=== PATIENT | male | born 1940 | race Caucasian/White ===

== ENCOUNTER 2023-11-26 10:33 | Inpatient (IN) | payer MEDICARE, OTHER, SELFPAY ==
--- NOTE | ~2023-11-26 | CT_ITS ---
EXAMINATION: CT HEAD WITHOUT CONTRAST CT CERVICAL SPINE WITHOUT CONTRAST CLINICAL INFORMATION: 83-year-old male with syncopal episode COMPARISON: None TECHNIQUE: CT of the head and cervical spine were performed without intravenous contrast. Multiplanar reformats were rendered and reviewed. This CT examination was performed using dose optimization techniques as appropriate, variously including the following: *Automated exposure control *Adjustment of mA and/or kV according to patient size (this includes techniques or standardized protocols for targeted exams where dose is matched to indication/reason for exam; i.e. extremities or head) *Use of iterative reconstruction technique DLP: 1162 mGy-cm. FINDINGS: CT head: No intracranial hemorrhage, large infarction, or mass lesion is seen . No extra-axial collection is appreciated. Ventricles and sulci are mildly prominent due to involutional changes in the mild patchy periventricular white matter changes as a sequela of microangiopathy. Visualized paranasal sinuses demonstrate mucosal thickening and mucus retention cyst in the left maxillary sinus. The right frontal sinus is not developed. The left frontal sinus is well aerated, ethmoidal and sphenoidal sinuses are well aerated. Mastoids are well aerated toe ulcer. CT cervical spine: The cervical alignment is normal. The craniocervical junction is normal. The vertebral body heights are maintained. No cervical spine fracture is seen. There are mild degenerative changes in cervical spine without spondylolysis or spondylolisthesis but with narrowing of C5-C6 intervertebral disc space with vacuum phenomenon. The paraspinal soft tissues are within normal limits. The partially imaged lung apices demonstrate left-sided pleural effusion CT/CT cervical spine wo IV con IMPRESSION: CT HEAD: 1. No acute intracranial finding. 2. Sequela of microangiopathy and global volume loss 3. Chronic sinus disease. CT CERVICAL SPINE: 1. No cervical spine fracture or traumatic malalignment identified. 2. Degenerative changes in cervical spine. 3. Left-sided pleural effusion.
--- NOTE | ~2023-11-26 | XR_ITS ---
EXAMINATION: XR CHEST CLINICAL INFORMATION: Pleural effusion with bilateral leg swelling COMPARISON: None available. TECHNIQUE: Frontal view of the chest was obtained. FINDINGS: The heart is enlarged. A left chest wall dual-lead pacemaker is present with one lead at the right ventricular apex and the other lead possibly at the right ventricular apex as well. The typical course of a coronary sinus lead is not seen. There is pulmonary vascular congestion. There is airspace opacity in the right midlung and at the left base with obscuration of the hemidiaphragm. Small pleural effusions are most likely present. XR/XR chest 1V IMPRESSION: 1. Cardiomegaly with pulmonary vascular congestion and small pleural effusions. 2. Airspace opacity right midlung and left base. 3. Pacemaker leads as described above.
--- NOTE | 2023-11-26 11:16 | ED_ITS ---
HPI - Fall General Chief Complaint: Fall Stated Complaint: FELL @0400, ams Time Seen by Provider: 11/26/23 11:09 Source: patient, EMS and RN notes reviewed Mode of arrival: EMS Limitations: no limitations History of Present Illness HPI Narrative: This is a 83-year-old male, with a past medical history of chronic kidney disease stage 3, CHF on supplemental O2, acute on chronic respiratory failure, atrial fibrillation, hypertension, pulmonary edema, malignant neoplasm of the colon, and sleep apnea, who presents to the emergency department from [facility], after a unwitnessed fall. Per EMS, they report stated that patient had fallen this morning at approximately 4:00 a.m. and had appear to be confused, and lethargic. However per EMS, patient became alert and oriented x4 and route. He reported to staff members that he had head and neck pain after this fall, however upon arrival to the emergency room he states he is feeling well and states that the fall occurred yesterday and he states that he just returned back from a hospital in [place]. Patient is a poor historian, states that he fell out of bed yesterday. He denies any headache does vision, chest pain, shortness of breath, abdominal pain, nausea, vomiting or diarrhea. No other complaints or concerns. MD complaint: fall Onset (ago): day(s) Fall from: out of bed Fall witnessed: no Place fall occurred: retirement/SNF Loss of consciousness: unsure Prolonged down time: unclear Associated symptoms (after fall): denies Related Data Allergies Allergy/AdvReac Type Severity Reaction Status Date / Time No Known Allergies Allergy Verified 11/26/23 11:26 Review of Systems 2 Review of Systems: Yes all other systems are reviewed and are negative Constitutional: Constitutional: Reports as per [facility] Social History Social History Smoked in Last 30 Days: No Use of substances other than those prescribed or required for medical reasons: No Advance Directives: No Physical Exam 2 Vital Signs: Vital Signs: Last Vital Signs Temp 97.5 F 11/26/23 13:50 Pulse 76 11/26/23 13:50 Resp 16 11/26/23 13:50 BP 132/76 11/26/23 13:50 Pulse Ox 98 11/26/23 13:50 O2 Del Method Nasal Cannula 11/26/23 13:50 O2 Flow Rate 3 11/26/23 13:50 Oxygen Flow Rate 4 11/26/23 11:18 BMI result Body Mass Index 28.2 Const: General: cooperative, comfortable and no acute distress O rientation/consciousness: patient oriented x3 Limitations: no limitations HEENT: Head: Yes normal to inspection, Yes normocephalic, Yes atraumatic, No Marte's sign, No occipital foramen tenderness, No palpable skull fracture and No raccoon eyes Ears: hearing grossly normal bilaterally and TM's normal bilaterally General nose exam: Normal external nose present Face and sinus: Yes normal facial exam Mouth: Normal oral and palatal mucosa present, oropharynx normal and moist mucous membranes Throat: Yes posterior oropharynx normal Eyes: General: appearance normal, both eyes and all related structures E yelids: Yes eyelids normal Conjunctivae: conjunctivae normal Sclerae: s clerae normal Pupils: Equal, round and reactive pupils present EOM: EOMs intact bilaterally Neck: Other: No midline spine tenderness palpation. Neck: Yes normal visual inspection, Yes full ROM and Yes no lymphadenopathy Lymphatic: no lymphadenopathy noted Chest: Chest palpation & inspection: normal inspection of the chest Resp: Other: Crackles auscultated in BL lung bases. Effort & Inspection: normal respiratory effort and able to speak in complete sentences Cardio: Rate: regular rate Rhythm: regular rhythm Heart sounds: S1 normal heart sound present and S2 normal heart sound present GI: Inspection: Yes normal to inspection Skin: General skin exam: no rashes or lesions noted Trauma: no lacerations or abrasions Wounds: no wounds Neuro: General: patient oriented x3 and moves all extremities Cranial nerves: Yes Equal, round and reactive pupils present Extrem: Other: 2+ pitting edema noted bilaterally. No calf tenderness. General: Yes normal to inspection Right upper extremity: normal to inspection Left upper extremity: normal to inspection Right lower extremity: normal to inspection Left lower extremity: normal to inspection Course Reevaluation(s) Reevaluation #1: Troponin returns, elevated at 98.9. Will repeat at 3:23PM. Patient remains comfortable. He has not had any chest pain or shortness of breath. EKG shows a ventricular paced rhythm, no obvious ST elevation or depression. Time: 13:55 Reevaluation #2: Repeat troponin flat at 98.8. Elevated troponin likely due to CKD. CT head unremarkable for any acute process. CT cervical spine shows no acute fracture. BNP elevated at 772. Albumin 3.0. We have no labs for comparison. Patient has faint crackles as well as 3+ pitting edema noted bilaterally. Physical exam findings consistent with acute CHF. Patient likely benefit from hospital admission. Chest x-ray was ordered, still pending however appears to have pleural effusion noted. Spoke to Dr. Lea for transfer of care for CHF. Time: 16:17 Medical Decision Making Medical Decision Making [facility] Narrative: This is a 83-year-old male, with a past medical history of chronic kidney disease stage 3, CHF, acute on chronic respiratory failure, atrial fibrillation, hypertension, pulmonary edema, malignant neoplasm of the colon, and sleep apnea, who presents to the emergency department from [facility], after an unwitnessed fall. On arrival, patient is alert and oriented x4. He is neurologically intact without any focal deficits. Patient recalls the fall which occurred according to him yesterday at 4:00 a.m. in the morning after he fell out of bed. He states that he was previously seen at a hospital in [place] for this. He states that he is unsure why he is here today. He is feeling well. Patient appears to be a poor historian in regards to situation however he is still alert and oriented. Patient on supplemental oxygen. Vital signs within normal limits. Differential diagnoses include ACS, ICH, subdural hematoma, syncope, electrolyte derangement, orthostatic hypotension. Plan labs, CT head, CT cervical spine, EKG Differential Diagnosis Differential Diagnoses: The differential diagnosis associated with the presentation includes See above Admission/Observation Consideration of admission/observation: Escalation of care including admission/observation considered Escalation of care including admission/observation considered however given workup today not warranted at this time. Lab Data [facility] Lab Attestation statement: I reviewed the patient's lab results. Normocytic anemia noted with a hemoglobin and hematocrit at 11.6/41.9, electrolytes within normal limits. Creatinine shows no evidence of CHITO. Elevated troponin 98.8, low albumin at 3.0. 11/26/23 12:23 11/26/23 12:23 Labs: Lab Results 11/26/23 11/26/23 11/26/23 Range/Units 12:23 14:04 15:38 WBC 4.5 L (4.8-10.8) X10*3/uL RBC 4.47 L (4.60-5.80) X10*6/uL Hgb 11.6 L (14.0-18.0) g/dl Hct 41.9 L (42.0-52.0) % MCV 93.7 (80.0-98.0) fL MCH 26.0 L (27.0-33.0) pg MCHC 27.7 L (31.0-36.0) g/dl RDW 18.3 H (11.0-16.0) % Plt Count 115 L (160-400) X10*3/uL MPV 10.0 (9.4-12.4) fL Immature Gran % (Auto) 0.7 H (0.0-0.4) % Neut % (Auto) 75.8 H (45-73) % Lymph % (Auto) 12.0 L (20-40) % Quay % (Auto) 10.0 (2-11) % Eos % (Auto) 1.1 (0-4) % Baso % (Auto) 0.4 (0-2) % Lymph # (Auto) 0.5 L (1.2-4.9) X10*3/uL Quay # (Auto) 0.5 (0.1-1.2) X10*3/uL Eos # (Auto) 0.1 (0.0-0.4) X10*3/uL Baso # (Auto) 0.0 (0.0-0.2) X10*3/uL Abs Immat Gran (auto) 0.03 (0.00-0.03) X10*3/uL Absolute Neuts (auto) 3.4 (2.0-8.3) x10*3/uL Absolute Nucleated RBC 0.000 (0.0-0.012) X10*3/uL Nucleated RBC % (auto) 0.0 (0.0-0.2) /100WBC PT 12.4 (11.1-13.3) SEC INR 1.0 (0.9-1.1) APTT 35.3 (26.0-36.8) SEC Sodium 146 H (135-145) mmol/L Potassium 4.9 D (3.3-5.1) mmol/L Chloride 104 (96-108) mmol/L Carbon Dioxide 35 H (22-29) mmol/L Anion Gap 12 (12-20) BUN 18 H (9-16) mg/dL Creatinine 0.84 (0.5-1.4) mg/dL Estim Creat Clear Calc 81.7 Estimated GFR > 60 Random Glucose 83 (60-115) mg/dL Calcium 9.1 (8.4-10.2) mg/dL Magnesium 1.9 (1.6-2.6) mg/dL Total Bilirubin 0.7 (0.0-1.0) mg/dL Direct Bilirubin 0.2 (0.0-0.5) mg/dL AST 20 (5-37) U/L ALT 11 (0-40) U/L Alkaline Phosphatase 87 (39-117) U/L Total Creatine Kinase 39 (38-174) U/L Troponin I High Sens 98.9 H 99.1 H (<3.5-35.0) ng/L B-Natriuretic Peptide 772 H (<100) pg/mL Total Protein 6.4 L (6.5-8.0) g/dL Albumin 3.0 L (3.5-5.0) g/dL Lipase 11 (8-78) U/L Independent Interpretation I performed an independent interpretation of an: EKG Interpretation: EKG ventricular paced rhythm at a ventricular rate of 72 beats per minute, QTC 470, no obvious ST elevation or depression. Radiology Impression Discussion of test interpretation with radiology: I have reviewed the radiologist's reading. External Record Review External record reviewed: Inpatient record, Office record, Outpatient record, Prior outpatient labs, Prior outpatient radiology, Primary care record and Outside ED record Critical Care Time Critical Care Time Critical Care Time: Yes Total Critical Care Time: 45 Attestation: I have personally provided critical care time exclusive of time spent on separately billable procedures. Time includes review of lab data, radiology results, discussion with consultants, and monitoring for potential decompensation. Intervention performed as documented. Discharge Plan Discharge Clinical Impression: CHF (congestive heart failure), Elevated troponin, Fall Patient Disposition: Admitted As Inpatient Print Language: Serbian
[2023-11-26 11:18] VITALS: BP 131/81; BP 132/76; PULSE 70; RESP 25; TEMP 36.5; O2SAT 98; O2SAT 99; BMI 28.2
--- NOTE | 2023-11-26 11:30 | ECG_ITS ---
Test Reason : FALL, ?SYNCOPE Blood Pressure : / mmHG Vent. Rate : 072 BPM Atrial Rate : 071 BPM P-R Int : 000 ms QRS Dur : 154 ms QT Int : 430 ms P-R-T Axes : 000 168 -05 degrees QTc Int : 470 ms Ventricular-paced rhythm Biventricular pacemaker detected Abnormal ECG No previous ECGs available Referred By: Chanelle Samson Electronically Signed By:Rickie Beckwith
--- NOTE | 2023-11-26 11:46 | MHC.EDTECH ---
Pt changed into hospital gown and cleaned with help of RN. Repositioned with pillows, call saavedra within reach.
[2023-11-26 12:28] LABS: MANUAL DIFF FLAG NO
[2023-11-26 12:41] LABS: Basophils Percent Auto 0.4 % (0-2); Eosinophils Absolute Auto 0.1 X10*3/uL (0.0-0.4); Eosinophils Percent Auto 1.1 % (0-4); Hematocrit 41.9 % (42.0-52.0); Hemoglobin 11.6 g/dl (14.0-18.0); Imm Gran Abs Auto 0.03 X10*3/uL (0.00-0.03); Imm Gran Pct Auto 0.7 % (0.0-0.4); Lymphocytes Absolute Auto 0.5 X10*3/uL (1.2-4.9); Mean Corpuscular HGB Conc 27.7 g/dl (31.0-36.0); Mean Corpuscular Volume 93.7 fL (80.0-98.0); Monocytes Absolute Auto 0.5 X10*3/uL (0.1-1.2); Neutrophils Absolute Auto 3.4 x10*3/uL (2.0-8.3); Neutrophils Percent Auto 75.8 % (45-73); Platelet Count 115 X10*3/uL (160-400); Red Blood Count 4.47 X10*6/uL (4.60-5.80); Red Cell Distribution Width 18.3 % (11.0-16.0); White Blood Count 4.5 X10*3/uL (4.8-10.8)
[2023-11-26 12:56] LABS: Troponin-I High Sensitivity 98.9 ng/L (<3.5-35.0)
[2023-11-26 12:57] LABS: Alanine Aminotransferase 11 U/L (0-40); Alkaline Phosphatase 87 U/L (39-117); Anion Gap 12 (12-20); Aspartate Amino Transferase 20 U/L (5-37); Bilirubin Direct 0.2 mg/dL (0.0-0.5); Bilirubin Total 0.7 mg/dL (0.0-1.0); Blood Urea Nitrogen 18 mg/dL (9-16); Calcium 9.1 mg/dL (8.4-10.2); Carbon Dioxide 35 mmol/L (22-29); Chloride 104 mmol/L (96-108); Creatinine Clr Calc Pharmacy 81.7; Estimated Glomerular Filt Rate > 60; Glucose Random 83 mg/dL (60-115); Lipase 11 U/L (8-78); Magnesium 1.9 mg/dL (1.6-2.6); Potassium 4.9 mmol/L (3.3-5.1); Sodium 146 mmol/L (135-145); Total Protein 6.4 g/dL (6.5-8.0)
--- NOTE | 2023-11-26 13:00 | PC.NURSE ---
PT HAS LARGE AREA OF ABRASION TO UPPER BACK AND EXCORATED BUTTOCKS.
[2023-11-26 13:35] VITALS: BP 112/52; PULSE 84; RESP 16; TEMP 36.4
[2023-11-26 13:50] VITALS: BP 132/76; PULSE 76; RESP 16; TEMP 36.4; O2SAT 98
--- NOTE | 2023-11-26 14:15 | MHC.EDTECH ---
with help of t/w and another tech, Pt cleaned, boosted and repositioned to be more on left side.
[2023-11-26 14:16] LABS: Prothrombin Time 12.4 SEC (11.1-13.3)
[2023-11-26 14:19] LABS: Partial Thromboplastin Time 35.3 SEC (26.0-36.8)
[2023-11-26 14:31] LABS: B Type Natriuretic Peptide 772 pg/mL (<100)
[2023-11-26 16:05] LABS: Troponin-I High Sensitivity 99.1 ng/L (<3.5-35.0)
--- NOTE | 2023-11-26 17:24 | PM.IMHP ---
History of Present Illness Date of Service: 11/26/23 Chief Complaint: fall 83M PMH congestive heart failure with recovered EF, AICD, unspecified afib s/p watchman procedure, AMY not on CPAP, chronic respiratory acidosis, right heart failure and moderate pulm htn, HTN, paraphimosis, presented from snf with fall and le edema. [place] [facility] [place] after prolonged hospitalization due to acute hypoxic on and acute on chronic hypercapneic respiratory failure requiring intubation. patient discharged to [facility]. ambulating with walker, improving overall. on day of presentation reports slipping out of bed while trying to get up, denies loc or head strike. does report increased swelling over past week. denies sob or chest pain. Review of Systems Review of Systems: Yes all other systems are reviewed and are negative [facility] Medical History (Updated 11/26/23 @ 17:32 by John Lea MD) CHF (congestive heart failure) Social History Smoked in Last 30 Days: No Use of substances other than those prescribed or required for medical reasons: No Advance Directives: No Meds Allergies Allergy/AdvReac Type Severity Reaction Status Date / Time No Known Allergies Allergy Verified 11/26/23 11:26 Active Medications: Current Medications Acetaminophen (Acetaminophen 325 Mg Tablet) 650 mg PO Q6H PRN PRN Reason: Pain, Mild (Pain Scale 1-3) Enoxaparin Sodium (Enoxaparin Sodium 40 Mg/0.4 Ml Syringe) 40 mg SUBCUT Q24H HERBIE Furosemide (Furosemide 40 Mg/4 Ml Vial) 40 mg IVPUSH BID@0900,1800 HERBIE; Protocol Sodium Chloride (0.9 % Sodium Chloride Flush 3 Ml Syringe) 3 ml IVFLUSH QSHIFT HERBIE Home Medications ?Medication ?Instructions ?Recorded ?Confirmed ?Last Taken ?Type albuterol sulfate 90 mcg/actuation 1 inh inhalation QID PRN wheezing 11/26/23 11/26/23 Unknown History aerosol inhaler (Ventolin HFA) and sob albuterol sulfate 90 mcg/actuation 1 puff inhalation Q12H 11/26/23 11/26/23 Unknown History aerosol inhaler (Ventolin HFA) aspirin 81 mg tablet,delayed 81 mg PO DAILY 11/26/23 11/26/23 Unknown History release atorvastatin 40 mg tablet 40 mg PO DAILY 11/26/23 11/26/23 Unknown History bisacodyl 10 mg rectal suppository 10 mg KS DAILY PRN if no bowel 11/26/23 11/26/23 Unknown History (Dulcolax (bisacodyl)) movement after milk of magnesia furosemide 40 mg tablet 40 mg PO DAILY 11/26/23 11/26/23 Unknown History magnesium hydroxide 400 mg/5 mL 30 ml PO DAILY PRN Constipation 11/26/23 11/26/23 Unknown History oral suspension (Milk of Magnesia) melatonin 3 mg tablet 3 mg PO BEDTIME PRN Insomnia 11/26/23 11/26/23 Unknown History metoprolol tartrate 25 mg tablet 25 mg PO BID 11/26/23 11/26/23 Unknown History pantoprazole 40 mg tablet,delayed 40 mg PO DAILY 11/26/23 11/26/23 Unknown History release polyethylene glycol 3350 17 17 g PO DAILY 11/26/23 11/26/23 Unknown History gram/dose oral powder potassium chloride 10 mEq 10 meq PO DAILY 11/26/23 11/26/23 Unknown History capsule,extended release potassium, sodium phosphates 280 2 packet PO Q8H 11/26/23 11/26/23 Unknown History mg-160 mg-250 mg oral powder packet (Phos-NaK) quetiapine 25 mg tablet (Seroquel) 25 mg PO BID PRN Agitation 11/26/23 11/26/23 Unknown History Physical Exam Vital Signs and Narrative: Vital Signs: Last Vital Signs Temp 97.5 F 11/26/23 13:50 Pulse 76 11/26/23 13:50 Resp 16 11/26/23 13:50 BP 132/76 11/26/23 13:50 Pulse Ox 98 11/26/23 13:50 O2 Del Method Nasal Cannula 11/26/23 13:50 O2 Flow Rate 3 11/26/23 13:50 Oxygen Flow Rate 4 11/26/23 11:18 BMI result Body Mass Index 28.2 General: AO X 3, no acute distress Resp: CTA bilateral, no accessory muscles used CVS: S1,S2,RRR, 2+ edema GI: soft, non tender, non distended Neuro: motor grossly intact, alert Psych: appropriate affect, appropriate insight Results Labs 11/26/23 12:23 11/26/23 12:23 Labs: Laboratory Results - last 24 hr 11/26/23 11/26/2311/25/24 12:23 14:04 15:38 MCV 93.7 MCH 26.0 L MCHC 27.7 L RDW 18.3 H Plt Count 115 L MPV 10.0 Immature Gran % (Auto) 0.7 H Neut % (Auto) 75.8 H Lymph % (Auto) 12.0 L Dougherty % (Auto) 10.0 Eos % (Auto) 1.1 Baso % (Auto) 0.4 Lymph # (Auto) 0.5 L Dougherty # (Auto) 0.5 Eos # (Auto) 0.1 Baso # (Auto) 0.0 Abs Immat Gran (auto) 0.03 Absolute Neuts (auto) 3.4 Absolute Nucleated RBC 0.000 Nucleated RBC % (auto) 0.0 PT 12.4 INR 1.0 APTT 35.3 Anion Gap 12 Estim Creat Clear Calc 81.7 Estimated GFR > 60 Random Glucose 83 Calcium 9.1 Magnesium 1.9 Total Bilirubin 0.7 Direct Bilirubin 0.2 AST 20 ALT 11 Alkaline Phosphatase 87 Total Creatine Kinase 39 Troponin I High Sens 98.9 H 99.1 H B-Natriuretic Peptide 772 H Total Protein 6.4 L Albumin 3.0 L Lipase 11 Imaging Radiologist's Impressions: Impressions Cervical Spine CT 11/26/23 12:16 IMPRESSION: CT HEAD: 1. No acute intracranial finding. 2. Sequela of microangiopathy and global volume loss 3. Chronic sinus disease. CT CERVICAL SPINE: 1. No cervical spine fracture or traumatic malalignment identified. 2. Degenerative changes in cervical spine. 3. Left-sided pleural effusion. Head CT 11/26/23 12:16 IMPRESSION: CT HEAD: 1. No acute intracranial finding. 2. Sequela of microangiopathy and global volume loss 3. Chronic sinus disease. CT CERVICAL SPINE: 1. No cervical spine fracture or traumatic malalignment identified. 2. Degenerative changes in cervical spine. 3. Left-sided pleural effusion. Assessment and Plan (1) CHF (congestive heart failure): Status: Acute Plan 83M PMH congestive heart failure with recovered EF, AICD, chronic hypoxic and hypercapneic respiratory failure on 2-4L o2, unspecified afib s/p watchman procedure, AMY not on CPAP, chronic respiratory acidosis, right heart failure and moderate pulm htn, HTN, paraphimosis, presented from snf with fall and le edema mechanical fall denies LOC or head strike possible due to increased edema, plan to return to SNF on discharge acute on chronic chf with recovered EF, pulm htn, right heart failure iv laisx, monitor electrolytes, creatinine chronic hypoxic and hypercapneic respiratory failure due to chf, pulm htn currently on 2L o2, goal sat 89-93% unspecified afib recent watchmans, continue asa, metoprolol amy not on cpap may need inpatient study dvt prophylaxis - lovenox DNR/DNI, okay with NIPPV patient with singificant heart failure requiring iv diuresis, close monitoring, given recent intubation, advanced comorbidites mentioned above, high risk for further decompensation, therefore, expected to require atleast 2 midnights inpatient Quality Stroke Does the patient have a stroke diagnosis?: No VTE Prior VTE?: No VTE Risk Level:: Medical - moderate - high VTE Device Contraindication: Treatment Not Indicated VTE Drug Contraindication: N/A - Med Ordered
[2023-11-26 17:29] VITALS: BP 145/73; PULSE 95; RESP 24; TEMP 36.4; O2SAT 97
[2023-11-26] MEDS: Furosemide 40 MG/4 ML VIAL IVPUSH (17:34)
--- NOTE | 2023-11-26 18:16 | PHA.MEDREC ---
Pharmacy Consult ? Medication Reconciliation Pharmacy has completed the medication reconciliation. Patient had list from [facility]. List does show patient takes ventolin HFA 1 puff Q12H scheduled + 1 puff every 6 hours as needed.
[2023-11-26 20:33] VITALS: BP 145/66; PULSE 77; RESP 26; O2SAT 93
[2023-11-26] MEDS: Metoprolol Tartrate 25 MG TABLET PO (20:48)
[2023-11-26 22:00] VITALS: BP 133/63; PULSE 70; RESP 17; TEMP 36.6; O2SAT 98
[2023-11-27 02:12] VITALS: BP 151/73; PULSE 80; RESP 18; TEMP 36.4; O2SAT 94
[2023-11-27 04:00] VITALS: BP 157/66; PULSE 78; RESP 20; TEMP 37.1; O2SAT 94
[2023-11-27 07:18] VITALS: BP 143/68; PULSE 80; RESP 18; TEMP 36.4; O2SAT 96
[2023-11-27 07:24] LABS: Anion Gap 9 (12-20); Blood Urea Nitrogen 20 mg/dL (9-16); Calcium 9.5 mg/dL (8.4-10.2); Chloride 102 mmol/L (96-108); Creatinine Clr Calc Pharmacy 78.8; Estimated Glomerular Filt Rate > 60; Glucose Fasting 96 mg/dL (60-99); Hematocrit 42.3 % (42.0-52.0); Hemoglobin 11.6 g/dl (14.0-18.0); Mean Corpuscular HGB Conc 27.4 g/dl (31.0-36.0); Mean Corpuscular Hemoglobin 25.7 pg (27.0-33.0); Mean Corpuscular Volume 93.8 fL (80.0-98.0); Mean Platelet Volume 10.2 fL (9.4-12.4); Platelet Count 133 X10*3/uL (160-400); Potassium 4.2 mmol/L (3.3-5.1); Red Blood Count 4.51 X10*6/uL (4.60-5.80); Red Cell Distribution Width 17.9 % (11.0-16.0); Sodium 148 mmol/L (135-145); White Blood Count 5.1 X10*3/uL (4.8-10.8)
[2023-11-27 07:33] LABS: Carbon Dioxide 41 mmol/L (22-29)
[2023-11-27 08:04] LABS: Venous Blood Gas Refer to POC result
[2023-11-27 08:05] LABS: VBG Base Excess 14.3 mmol/L; VBG HCO3 43 mmol/L (22-26); VBG pCO2 81 mmHg; VBG pH 7.34 (7.32-7.43); VBG pO2 50 mmHg
[2023-11-27] MEDS: Enoxaparin Sodium 40 MG/0.4 ML SYRINGE SUBCUT (08:17)
[2023-11-27] MEDS: Atorvastatin Calcium 40 MG TABLET PO (08:17)
[2023-11-27] MEDS: Metoprolol Tartrate 25 MG TABLET PO ×2 (08:17→20:33)
[2023-11-27] MEDS: Aspirin Enteric Coated 81 MG TABLET.DR PO (08:17)
[2023-11-27] MEDS: 0.9 % Sodium Chloride Flush 3 ML SYRINGE IVFLUSH ×3 (08:18→21:36)
--- NOTE | 2023-11-27 10:22 | MHC.CM.PN ---
CM met with Patient and his Son at bedside and addressed IMM with them (original was given to Patient and a copy has been placed on the chart). Patient's goal is to return to [facility] to complete STR(Family is deciding on bed hold status). Patient typically lives in a house with his /HCP/Karime and he uses a walker to assist with mobility.
--- NOTE | 2023-11-27 10:27 | MHC.CM.PN ---
BONI returned a call to /Karime @ [phone], but was only able to leave a detailed message.
--- NOTE | 2023-11-27 11:02 | HO.PM.IMPN ---
Subjective Subjective Date of Service: 11/27/23 Interval History: a bit more sob today Physical Exam Vital Signs: Vital Signs: Last Vital Signs Temp 97.5 F 11/27/23 07:18 Pulse 80 11/27/23 07:18 Resp 18 11/27/23 07:18 BP 143/68 H 11/27/23 07:18 Pulse Ox 96 11/27/23 07:18 O2 Del Method Nasal Cannula 11/27/23 07:18 O2 Flow Rate 3 11/27/23 07:18 Oxygen Flow Rate 4 11/26/23 11:18 BMI result Body Mass Index 28.2 General: AO X 3, no acute distress, frail, ill appearing Resp: diminished bilateral, some accessory muscles used CVS: S1,S2,RRR, no edema GI: soft, non tender, non distended Neuro: motor grossly intact, alert Psych: appropriate affect, appropriate insight Objective Data Active Medications Acetaminophen (Acetaminophen 325 Mg Tablet) 650 mg PO Q6H PRN PRN Reason: Pain, Mild (Pain Scale 1-3) Acetazolamide (Acetazolamide Sodium 500 Mg Vial) 500 mg IVPUSH Q12H [facility] Albuterol Sulfate (Albuterol Sulfate 90 Mcg 8 Gm Inhaler) 1 puff INHALE QID PRN PRN Reason: wheezing and sob Aspirin (Aspirin Enteric Coated 81 Mg Tablet.) 81 mg PO DAILY [facility] Last Admin: 11/27/23 08:17 Dose: 81 mg Documented By: JAREK Atorvastatin Calcium (Atorvastatin Calcium 40 Mg Tablet) 40 mg PO DAILY [facility] Last Admin: 11/27/23 08:17 Dose: 40 mg Documented By: JAREK Enoxaparin Sodium (Enoxaparin Sodium 40 Mg/0.4 Ml Syringe) 40 mg SUBCUT Q24H [facility] Last Admin: 11/27/23 08:17 Dose: 40 mg Documented By: JAREK Metoprolol Tartrate (Metoprolol Tartrate 25 Mg Tablet) 25 mg PO BID [facility]; Protocol Last Admin: 11/27/23 08:17 Dose: 25 mg Documented By: JAREK Omeprazole (Omeprazole 20 Mg Capsule.) 20 mg PO DAILY@0630 [facility] Last Admin: 11/27/23 06:14 Dose: Not Given Documented By: ANTOIC Non-Admin Reason: Patient Refused Quetiapine Fumarate (Quetiapine Fumarate 25 Mg Tablet) 25 mg PO BID PRN PRN Reason: Agitation Sodium Chloride (0.9 % Sodium Chloride Flush 3 Ml Syringe) 3 ml IVFLUSH QSHIFT [facility] Last Admin: 11/27/23 08:18 Dose: 3 ml Documented By: JAREK Labs 11/27/23 06:53 11/27/23 06:53 Labs: Laboratory Results - last 24 hr 11/26/23 11/26/23 11/26/23 12:23 14:04 15:38 MCV 93.7 MCH 26.0 L MCHC 27.7 L RDW 18.3 H Plt Count 115 L MPV 10.0 Immature Gran % (Auto) 0.7 H Neut % (Auto) 75.8 H Lymph % (Auto) 12.0 L [place] % (Auto) 10.0 Eos % (Auto) 1.1 Baso % (Auto) 0.4 Lymph # (Auto) 0.5 L [place] # (Auto) 0.5 Eos # (Auto) 0.1 Baso # (Auto) 0.0 Abs Immat Gran (auto) 0.03 Absolute Neuts (auto) 3.4 Absolute Nucleated RBC 0.000 Nucleated RBC % (auto) 0.0 PT 12.4 INR 1.0 APTT 35.3 VBG pH VBG pCO2 VBG pO2 VBG HCO3 VBG O2 Saturation VBG Base Excess Anion Gap 12 Estim Creat Clear Calc 81.7 Estimated GFR > 60 Random Glucose 83 Fasting Glucose Calcium 9.1 Magnesium 1.9 Total Bilirubin 0.7 Direct Bilirubin 0.2 AST 20 ALT 11 Alkaline Phosphatase 87 Total Creatine Kinase 39 Troponin I High Sens 98.9 H 99.1 H B-Natriuretic Peptide 772 H Total Protein 6.4 L Albumin 3.0 L Lipase 11 11/27/23 11/27/23 06:53 07:59 MCV 93.8 MCH 25.7 L MCHC 27.4 L RDW 17.9 H Plt Count 133 L MPV 10.2 Immature Gran % (Auto) Neut % (Auto) Lymph % (Auto) [place] % (Auto) Eos % (Auto) Baso % (Auto) Lymph # (Auto) [place] # (Auto) Eos # (Auto) Baso # (Auto) Abs Immat Gran (auto) Absolute Neuts (auto) Absolute Nucleated RBC 0.000 Nucleated RBC % (auto) 0.0 PT INR APTT VBG pH 7.34 VBG pCO2 81 VBG pO2 50 VBG HCO3 43 H VBG O2 Saturation 76.0 VBG Base Excess 14.3 Anion Gap 9 L Estim Creat Clear Calc 78.8 Estimated GFR > 60 Random Glucose Fasting Glucose 96 Calcium 9.5 Magnesium Total Bilirubin Direct Bilirubin AST ALT Alkaline Phosphatase Total Creatine Kinase Troponin I High Sens B-Natriuretic Peptide Total Protein Albumin Lipase Assessment and Plan (1) CHF (congestive heart failure): Status: Acute Plan 83M PMH congestive heart failure with recovered EF, AICD, chronic hypoxic and hypercapneic respiratory failure on 2-4L o2, unspecified afib s/p watchman procedure, DELONTE not on CPAP, chronic respiratory acidosis, right heart failure and moderate pulm htn, HTN, paraphimosis, presented from snf with fall and le edema mechanical fall denies LOC or head strike possible due to increased edema, plan to return to SNF on discharge acute on chronic chf with recovered EF, pulm htn, right heart failure changed to iv diamox, monitor electrolytes, creatinine acute on chronic hypoxic and hypercapneic respiratory failure due to chf, pulm htn currently on 2L o2, goal sat 89-93% vbg with some mild acute on chronic respiratory acidosis, needs cpap when sleeping unspecified afib recent watchmans, continue asa, metoprolol delonte not on cpap may need inpatient study dvt prophylaxis - lovenox DNR/DNI, okay with NIPPV reason for continued hospitalization:tachypnea, sob, resp acidosis Quality Stroke Does the patient have a stroke diagnosis?: No VTE Prior VTE?: No VTE Risk Level:: Medical - moderate - high VTE Device Contraindication: Treatment Not Indicated VTE Drug Contraindication: N/A - Med Ordered
[2023-11-27] MEDS: acetaZOLAMIDE sodium 500 MG VIAL IVPUSH ×2 (11:11→21:36)
[2023-11-27 11:15] VITALS: BP 125/59; PULSE 78; RESP 18; TEMP 36.2; O2SAT 96
--- NOTE | 2023-11-27 12:00 | MHC.CM.PN ---
Patient is a private pay bed hold at [facility].
[2023-11-27 12:30] LABS: Adenovirus F 40/41 Not Detected (Not Detect.); Astrovirus Not Detected (Not Detect.); Campylobacter Not Detected (Not Detect.); Cryptosporidium Not Detected (Not Detect.); Cyclospora cayetanensis Not Detected (Not Detect.); E. coli EAEC Not Detected (Not Detect.); E. coli EPEC Not Detected (Not Detect.); E. coli ETEC Not Detected (Not Detect.); E. coli STEC Not Detected (Not Detect.); Entamoeba histolytica Not Detected (Not Detect.); Giardia lamblia Not Detected (Not Detect.); Plesiomonas shigelloides Not Detected (Not Detect.); Rotavirus A Not Detected (Not Detect.); Salmonella Not Detected (Not Detect.); Sapovirus Not Detected (Not Detect.); Shigella sp./EIEC Not Detected (Not Detect.); Vibrio Not Detected (Not Detect.); Vibrio Cholerae Not Detected (Not Detect.); Yersinia enterocolitica Not Detected (Not Detect.)
[2023-11-27 13:07] LABS: CDiff Gene PCR NEGATIVE (Negative)
--- NOTE | 2023-11-27 13:19 | MHC.IC ---
gi PANEL + NOROVIRUS - preliminary. STRICT HANDWASHING W SOAP AND WATER, CLEAN W BLEACH
[2023-11-27 15:25] VITALS: BP 137/59; PULSE 80; RESP 20; TEMP 36.9; O2SAT 97
[2023-11-27] MEDS: QUEtiapine Fumarate 25 MG TABLET PO (16:30)
[2023-11-27 20:00] VITALS: BP 110/55; PULSE 84; RESP 16; TEMP 36; O2SAT 92
[2023-11-28] VITALS (9 sets, daily range): BP systolic 113–132; BP diastolic 57–60; PULSE 76–125; RESP 18–37; TEMP 36–36.6; O2SAT 88–96; BMI 28.2
--- NOTE | 2023-11-28 00:40 | PC.RT ---
Pt refusing Sleep Study; RN aware
[2023-11-28] MEDS: Omeprazole 20 MG CAPSULE.DR PO (05:23)
[2023-11-28 06:25] LABS: Venous Blood Gas Refer to POC result
[2023-11-28 06:26] LABS: Hematocrit 45.9 % (42.0-52.0); Hemoglobin 12.2 g/dl (14.0-18.0); Mean Corpuscular HGB Conc 26.6 g/dl (31.0-36.0); Mean Corpuscular Hemoglobin 25.5 pg (27.0-33.0); Mean Platelet Volume 10.5 fL (9.4-12.4); Platelet Count 116 X10*3/uL (160-400); Red Blood Count 4.78 X10*6/uL (4.60-5.80); Red Cell Distribution Width 17.6 % (11.0-16.0)
[2023-11-28 06:27] LABS: White Blood Count 2.3 X10*3/uL (4.8-10.8)
[2023-11-28 06:30] LABS: VBG HCO3 43 mmol/L (22-26); VBG pCO2 95 mmHg; VBG pH 7.26 (7.32-7.43); VBG pO2 31 mmHg
[2023-11-28 06:47] LABS: Anion Gap 11 (12-20); Blood Urea Nitrogen 26 mg/dL (9-16); Calcium 9.1 mg/dL (8.4-10.2); Chloride 102 mmol/L (96-108); Creatinine Clr Calc Pharmacy 78.8; Estimated Glomerular Filt Rate > 60; Glucose Fasting 82 mg/dL (60-99); Potassium 3.5 mmol/L (3.3-5.1); Sodium 149 mmol/L (135-145)
[2023-11-28 07:11] LABS: Carbon Dioxide 40 mmol/L (22-29)
--- NOTE | 2023-11-28 07:44 | P.PNIM_ITS ---
Subjective Subjective Date of Service: 11/28/23 Interval History: pateint refused cpap overnight, refused sleep study, unable to be weaned down further on o2 overnight, in AM more lethargic, wanted to be left alone to sleep Review of Systems Review of Systems: Yes all other systems are reviewed and are negative Physical Exam 2 Vital Signs: Vital Signs: Last Vital Signs Temp 97.9 F 11/28/23 04:00 Pulse 76 11/28/23 04:00 Resp 18 11/28/23 04:00 BP 132/60 11/28/23 04:00 Pulse Ox 95 11/28/23 04:00 O2 Del Method Nasal Cannula 11/28/23 04:00 O2 Flow Rate 3 11/28/23 04:00 Oxygen Flow Rate 4 11/26/23 11:18 BMI result Body Mass Index 28.2 lethargic, opens eyes briefly to stimulation, mumbling lungs clear Objective Data Active Medications Acetaminophen (Acetaminophen 325 Mg Tablet) 650 mg PO Q6H PRN PRN Reason: Pain, Mild (Pain Scale 1-3) Albuterol Sulfate (Albuterol Sulfate 90 Mcg 8 Gm Inhaler) 1 puff INHALE QID PRN PRN Reason: wheezing and sob Aspirin (Aspirin Enteric Coated 81 Mg Tablet.) 81 mg PO DAILY [facility] Last Admin: 11/27/23 08:17 Dose: 81 mg Documented By: JAREK Atorvastatin Calcium (Atorvastatin Calcium 40 Mg Tablet) 40 mg PO DAILY [facility] Last Admin: 11/27/23 08:17 Dose: 40 mg Documented By: JAREK Enoxaparin Sodium (Enoxaparin Sodium 40 Mg/0.4 Ml Syringe) 40 mg SUBCUT Q24H [facility] Last Admin: 11/27/23 08:17 Dose: 40 mg Documented By: JAREK Metoprolol Tartrate (Metoprolol Tartrate 25 Mg Tablet) 25 mg PO BID [facility]; Protocol Last Admin: 11/27/23 20:33 Dose: 25 mg Documented By: ACOSTA Omeprazole (Omeprazole 20 Mg Capsule.) 20 mg PO DAILY@0630 [facility] Last Admin: 11/28/23 05:23 Dose: 20 mg Documented By: ACOSTA Quetiapine Fumarate (Quetiapine Fumarate 25 Mg Tablet) 25 mg PO BID PRN PRN Reason: Agitation Last Admin: 11/27/23 16:30 Dose: 25 mg Documented By: JAREK Sodium Chloride (0.9 % Sodium Chloride Flush 3 Ml Syringe) [facility] Last Admin: 11/27/23 21:36 Dose: 3 ml Documented By: ACOSTA Labs 11/28/23 06:17 11/28/23 06:18 Labs: Laboratory Results - last 24 hr 11/27/23 11/27/23 11/28/23 07:59 10:50 06:17 MCV 96.0 MCH 25.5 L MCHC 26.6 L RDW 17.6 H Plt Count 116 L MPV 10.5 Absolute Nucleated RBC 0.000 Nucleated RBC % (auto) 0.0 VBG pH 7.34 VBG pCO2 81 VBG pO2 50 VBG HCO3 43 H VBG O2 Saturation 76.0 VBG Base Excess 14.3 Anion Gap Estim Creat Clear Calc Estimated GFR Fasting Glucose Calcium Stl C. cayetanensis PCR Not Detected Stool Rotavirus A PCR Not Detected Stl Adenov F 40/41 PCR Not Detected Stool Astrovirus (PCR) Not Detected Stool Campylobacter PCR Not Detected Stool Cryptosporidium PCR Not Detected Stl Sh Tox Pr E STEC PCR Not Detected Stool E coli O157 PCR Not applicable Stl Enterotoxigenic E PCR Not Detected Stool EPEC (PCR) Not Detected Stool EAEC (PCR) Not Detected Stl E. histolytica PCR Not Detected Stool Giardia Lamblia PCR Not Detected Stl P. shigelloides PCR Not Detected Stool Salmonella PCR Not Detected Stool Sapovirus (PCR) Not Detected Stl Shigella/EIEC PCR Not Detected St Y.enterocolitica PCR Not Detected Stool Vibrio (PCR) Not Detected Stl Vibrio cholerae PCR Not Detected Stl Norovirus GI/GII PCR See Comment C. difficile Tox B Gene NEGATIVE 11/28/23 11/28/23 06:18 06:21 MCV MCH MCHC RDW Plt Count MPV Absolute Nucleated RBC Nucleated RBC % (auto) VBG pH 7.26 L VBG pCO2 95 VBG pO2 31 VBG HCO3 43 H VBG O2 Saturation 39.0 VBG Base Excess 12.0 Anion Gap 11 L Estim Creat Clear Calc 78.8 Estimated GFR > 60 Fasting Glucose 82 Calcium 9.1 Stl C. cayetanensis PCR Stool Rotavirus A PCR Stl Adenov F 40/41 PCR Stool Astrovirus (PCR) Stool Campylobacter PCR Stool Cryptosporidium PCR Stl Sh Tox Pr E STEC PCR Stool E coli O157 PCR Stl Enterotoxigenic E PCR Stool EPEC (PCR) Stool EAEC (PCR) Stl E. histolytica PCR Stool Giardia Lamblia PCR Stl P. shigelloides PCR Stool Salmonella PCR Stool Sapovirus (PCR) Stl Shigella/EIEC PCR St Y.enterocolitica PCR Stool Vibrio (PCR) Stl Vibrio cholerae PCR Stl Norovirus GI/GII PCR C. difficile Tox B Gene Assessment and Plan (1) CHF (congestive heart failure): Status: Acute Plan 83M PMH congestive heart failure with recovered EF, AICD, chronic hypoxic and hypercapneic respiratory failure on 2-4L o2, unspecified afib s/p watchman procedure, DELONTE not on CPAP, chronic respiratory acidosis, right heart failure and moderate pulm htn, HTN, paraphimosis, presented from snf with fall and le edema, now with worsening mental status mechanical fall denies LOC or head strike possible due to increased edema, plan to return to SNF on discharge acute on chronic chf with recovered EF, pulm htn, right heart failure edema improved, now holding diuretics acute on chronic hypoxic and hypercapneic respiratory failure due to chf, pulm htn complicated by acute metabolic encephalopathy refused cpap, co2 worsening, d/w son, and icu will transfer to ICU for nippv unspecified afib recent watchmans, continue asa, metoprolol delonte refusing cpap/sleep study dvt prophylaxis - lovenox DNR/DNI, okay with NIPPV reason for continued hospitalization:ams Quality Stroke Does the patient have a stroke diagnosis?: No VTE Prior VTE?: No VTE Risk Level:: Medical - moderate - high VTE Device Contraindication: Treatment Not Indicated VTE Drug Contraindication: N/A - Med Ordered
--- NOTE | 2023-11-28 08:53 | P.PNCC_ITS ---
Subjective Subjective Date of Service: 11/28/23 Interval History: Patient is a 83 Y M with hypertension, congestive heart failure, atrial fibrillation s/p watchman, DELONTE, COPD c/b chronic hypercarbic respiratory failure, recent admission for acute on chronic hypercarbic respiratory failure, discharged to nursing facility, re-presenting on 11/25 w/ anasarca, presumed CHF exacerbation; patient found to be encephalopathic on 11/25 d/t acute on chronic hypercarbic respiratory failure, admitted to ICU for non-invasive positive pressure ventilation Critical Care Time (minutes): 90 Physical Exam 2 Vital Signs: Vital Signs: Last Vital Signs Temp 96.8 F 11/28/23 07:51 Pulse 86 11/28/23 07:51 Resp 22 H 11/28/23 08:15 BP 123/58 L 11/28/23 07:51 Pulse Ox 88 L 11/28/23 07:51 O2 Del Method Nasal Cannula 11/28/23 07:51 O2 Flow Rate 1 11/28/23 07:51 Oxygen Flow Rate 4 11/26/23 11:18 BMI result Body Mass Index 28.2 Const: Other: somnolent, though arousable with verbal stimulus; answers yes-no questions, though unable to participate in higher-level questioning General: well developed HEENT: Head: Yes normal to inspection, Yes normocephalic and Yes atraumatic Eyes: General: appearance normal, both eyes and all related structures Neck: Neck: Yes normal visual inspection, Yes full ROM and Yes supple Chest: Chest palpation & inspection: normal inspection of the chest Resp: Other: appreciable rales; no appreciable rhonchi, wheezing Cardio: Rate: regular rate Rhythm: abnormal rhythm GI: Inspection: Yes normal to inspection, No Abdominal wall edema and No distended Palpation (GI): Soft to palpation, not firm, nontender, no guarding and not rigid : Male General Exam: Yes normal external exam Skin: Other: appreciable chronic venous stasis changes bilateral legs Neuro: General: tone normal, moves all extremities and no focal motor deficits Extrem: Other: 1+ pitting edema to bilateral knees General: Yes full ROM and Yes capillary refill normal Psych: Appearance: grossly normal Objective Data Labs 11/28/23 06:17 11/28/23 06:18 Labs: Laboratory Results - last 24 hr 11/27/23 11/28/23 11/28/23 10:50 06:17 06:18 WBC 2.3 L RBC 4.78 Hgb 12.2 L Hct 45.9 MCV 96.0 MCH 25.5 L MCHC 26.6 L RDW 17.6 H Plt Count 116 L MPV 10.5 Absolute Nucleated RBC 0.000 Nucleated RBC % (auto) 0.0 VBG pH VBG pCO2 VBG pO2 VBG HCO3 VBG O2 Saturation VBG Base Excess Sodium 149 H Potassium 3.5 Chloride 102 Carbon Dioxide 40 H* Anion Gap 11 L BUN 26 H Creatinine 0.87 Estim Creat Clear Calc 78.8 Estimated GFR > 60 Fasting Glucose 82 Calcium 9.1 Stl C. cayetanensis PCR Not Detected Stool Rotavirus A PCR Not Detected Stl Adenov F 40/41 PCR Not Detected Stool Astrovirus (PCR) Not Detected Stool Campylobacter PCR Not Detected Stool Cryptosporidium PCR Not Detected Stl Sh Tox Pr E STEC PCR Not Detected Stool E coli O157 PCR Not applicable Stl Enterotoxigenic E PCR Not Detected Stool EPEC (PCR) Not Detected Stool EAEC (PCR) Not Detected Stl E. histolytica PCR Not Detected Stool Giardia Lamblia PCR Not Detected Stl P. shigelloides PCR Not Detected Stool Salmonella PCR Not Detected Stool Sapovirus (PCR) Not Detected Stl Shigella/EIEC PCR Not Detected St Y.enterocolitica PCR Not Detected Stool Vibrio (PCR) Not Detected Stl Vibrio cholerae PCR Not Detected Stl Norovirus GI/GII PCR See Comment C. difficile Tox B Gene NEGATIVE 11/28/23 06:21 WBC RBC Hgb Hct MCV MCH MCHC RDW Plt Count MPV Absolute Nucleated RBC Nucleated RBC % (auto) VBG pH 7.26 L VBG pCO2 95 VBG pO2 31 VBG HCO3 43 H VBG O2 Saturation 39.0 VBG Base Excess 12.0 Sodium Potassium Chloride Carbon Dioxide Anion Gap BUN Creatinine Estim Creat Clear Calc Estimated GFR Fasting Glucose Calcium Stl C. cayetanensis PCR Stool Rotavirus A PCR Stl Adenov F 40/41 PCR Stool Astrovirus (PCR) Stool Campylobacter PCR Stool Cryptosporidium PCR Stl Sh Tox Pr E STEC PCR Stool E coli O157 PCR Stl Enterotoxigenic E PCR Stool EPEC (PCR) Stool EAEC (PCR) Stl E. histolytica PCR Stool Giardia Lamblia PCR Stl P. shigelloides PCR Stool Salmonella PCR Stool Sapovirus (PCR) Stl Shigella/EIEC PCR St Y.enterocolitica PCR Stool Vibrio (PCR) Stl Vibrio cholerae PCR Stl Norovirus GI/GII PCR C. difficile Tox B Gene Progress Note: A&P Assessment and plan (1) CHF (congestive heart failure): Status: Acute (2) Acute and chronic respiratory failure with hypercapnia: Status: Acute Plan Patient is a 83 Y M with hypertension, congestive heart failure, atrial fibrillation s/p watchman, DELONTE, COPD c/b chronic hypercarbic respiratory failure, recent admission for acute on chronic hypercarbic respiratory failure, discharged to nursing facility, re-presenting on 11/25 w/ anasarca, presumed CHF exacerbation; patient found to be encephalopathic on 11/25 d/t acute on chronic hypercarbic respiratory failure, admitted to ICU for non-invasive positive pressure ventilation Of note, Mr. Phillip's son and healthcare proxy, Lencho, arrived to his room at around 9:30. At this time, Mr. Phillip was able to answer yes-no questions with prompting, but unable to participate in higher-level questions. I offered updates and clarifications. Lencho questions the utility of NIPPV if Mr. Phillip's chronic respiratory failure can never be fully resolved. Moreover, Lencho feels that Mr. Phillip would not want NIPPV, as well as any additional interventions, such as artificial nutrition and hemodialysis. Lencho feels that it is appropriate at this time to transition Mr. Phillip to comfort-focused care. Lencho would like to bring his mother to the hospital if at all possible, but otherwise would like to initiate comfort-focused care at 12:00. Quality Stroke Does the patient have a stroke diagnosis?: No VTE Prior VTE?: No VTE Risk Level:: Medical - moderate - high VTE Device Contraindication: Treatment Not Indicated VTE Drug Contraindication: N/A - Med Ordered
--- NOTE | 2023-11-28 09:08 | PC.RT ---
pt placed on rescue Bipap per DR. Carter due to hypercarbia. Pt is somewhat responsive but somnolent. There is a sitter in the room for patient safety and then pt being transferred to the ICU.
[2023-11-28] MEDS: Furosemide 40 MG/4 ML VIAL IVPUSH (09:23)
[2023-11-28] MEDS: Enoxaparin Sodium 40 MG/0.4 ML SYRINGE SUBCUT (09:23)
[2023-11-28] MEDS: 0.9 % Sodium Chloride Flush 3 ML SYRINGE IVFLUSH ×2 (09:23→13:42)
--- NOTE | 2023-11-28 10:29 | MHC.CM.PN ---
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 CM will follow.
--- NOTE | 2023-11-28 10:29 | HO.WOUND ---
Wound Consult: Initial 83yr old?Male admitted to [facility] on 11/25/23 - See progress notes and H&P for detailed history.? Wound consult placed for coccyx wound POA.? Arrival to bedside - discussed with direct care nurse - patient is not stable to repositionat this time - his son is talking with providers at this time to dicuss escalating care vs hospice. There was a photo taken yesterday by the direct care team - after disucssion and photo review the sacral area seen below appears to be MASD (Moisture Associated Dermatitis ) and Deep Tissue Injury. Direct care nurse reports tissue does not isa in some areas and the patient is incontinent of large volumes. Topical orders made below based on discussion and photo review will attemot assessment at future date and or time of patient remains inpatient and is appropriate for reposition. Sacrum Below based on photo review and discussion noted above. Etiology: ?Deep Tissue Injury ?Present on Admission Wound Bed: areas of nonblanchable purple pigmentaiton Drainage / Odor: None Edges: ? Irregular and well defined [place] wound: ?MASD Evidence of chronic moisture Goals of Treatment: ? barrier cream and off load pressure Recommendations: 1. Turn and Reposition every 2 hours and as needed for patient comfort.? Use pillows or wedges to support off loading positions. 2. Off Load all bony prominences with use of pillows and heel boots if needed.? Apply Preventative foams where needed. ? 3. Monitor for incontinence and moisture control, use barrier creams when needed for prevention and treatment. 4. Provide adequate and supplemental nutrition.? 5. Order low air loss mattress. 6. When applicable maintain blood glucose levels per Providers order. 7. Sacrum - Routine Cleansing, pat dry. Apply Triad barrier cream twice daily and PRN after incontinence episodes. Off Load Pressure with pillows and or wedges. If incontinence episodes do not reach sacral form dressing feel free to apply over triad however if frequent changes occur discontinue foam and use Triad alone. Re-consult wound care Nurse for wound deterioration or wound changes.
--- NOTE | 2023-11-28 11:29 | MHC.CLN ---
RE: CONSULT PT WITH INCREASED NUTRITION RISK R/T PRESSURE INJURY PT CURRENTLY NPO PT TRANSITIONING TO FICTION AND NONFICTION AUTHOR PER MD NOTE DATED 11/28/23 EXPECT DECLINE IN ALL PARAMETERS WILL FOLLOW WITH TEAM AND PROVIDE SUPPORT NEEDED PRIMARY GOAL IS COMFORT AT THIS TIME SEE ALSO FULL CLINICAL NUTRITION ASSESSMENT
[2023-11-28] MEDS: Scopolamine 1.5 MG PATCH.TD.3 EAR-BEHIND (11:56)
[2023-11-28] MEDS: Morphine Sulfate 2 MG/ML CARTRIDGE IVPUSH (13:41)
[2023-11-28] MEDS: Morphine Sulfate/NS 100 MG/100 ML PLAST..BAG IVCONT (13:48)
--- NOTE | 2023-11-28 14:11 | PC.RT ---
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
[2023-11-28] MEDS: Haloperidol Lactate 5 MG/ML VIAL IVPUSH (16:35)
[2023-11-28] MEDS: LORazepam 2 MG/ML VIAL 0.5 MG IVPUSH (17:43)
--- NOTE | 2023-11-28 20:39 | PM.EVENT ---
Event Note Date of Service: 11/28/23 Event Note: I was called to patient's bedside to pronounce the patient. No spontaneous movements were present. There was no response to verbal or tactile stimulus. Pupils were mid dilated and fixed. No breath sounds were appreciated over either lung field. No carotid pulses were palpable. No heart sounds were auscultated over entire precordium. Patient was on comfort measures only. Patient pronounced on 11/28/2023 at 20:30. Lencho (son) called and condolences offered. Time Spent With Patient Time: Total time managing care of this patient today ____ minutes.
--- NOTE | 2023-11-28 21:08 | PC.NURSE ---
No pulse on respration , DR Vivar notified , pronounced at 20:30 , [facility] called 20:45, spoke with Andrew castaneda, he will call back with the final decision .
--- NOTE | 2023-11-28 21:50 | PC.NURSE ---
Family was notified by DR Vivar , [facility] declined the case
--- NOTE | 2023-11-29 06:51 | PM.DDS ---
Discharge Sum: Prov Provider Primary care physician: Andrea Bazan MD Discharge Sum: Diag Contributing Factors (1) CHF (congestive heart failure): (2) Acute and chronic respiratory failure with hypercapnia: Discharge Sum: Summary Date and Time Date of admission: 11/26/23 17:19 Date of : 11/28/23 Summary Details: from initial hpi: 83M PMH congestive heart failure with recovered EF, AICD, unspecified afib s/p watchman procedure, DELONTE not on CPAP, chronic respiratory acidosis, right heart failure and moderate pulm htn, HTN, paraphimosis, presented from snf with fall and le edema. patient was discharged from [facility] 11/16/23 after prolonged hospitalization due to acute hypoxic on and acute on chronic hypercapneic respiratory failure requiring intubation. patient discharged to [facility]. ambulating with walker, improving overall. on day of presentation reports slipping out of bed while trying to get up, denies loc or head strike. does report increased swelling over past week. denies sob or chest pain. hospital course: Patient was admitted for mechanical fall likely due to increased edema and overall weakness from cardiomyopathy. Noted to be in acute on chronic CHF with recovered EF, pulmonary hypertension, right heart failure. Was given IV Lasix diuresed well and edema improved. Course was complicated by acute on chronic hypoxic and hypercapnic respiratory failure due to CHF, pulmonary hypertension, further complicated by acute metabolic encephalopathy as patient refused to wear his CPAP CO2 worsened. Initially patient was transferred to the ICU with a plan for noninvasive positive pressure ventilation, however, after discussion with son decision was made to transitioned to comfort measures only. Patient 11/29/2023. Additional Data Attending physician: John Lea MD
== END 2023-11-28 20:30 | disposition expired | DRG 291 ==
LOC: HO.ED 17:11 → HO.EDOVER 17:26 → HO.IMC 11-27 00:54
PROVIDERS: Physician Assistant Medical; Admitting Provider Internal Medicine; Emergency Provider Student in an Organized Health Care Education/Training Program; PCP Family Medicine; Visit Provider Internal Medicine
DX: I13.0 Hypertensive heart and chronic kidney disease with heart failure and stage 1 through stage 4 chronic kidney disease, or unspecified chronic kidney disease (principal); G93.41 Metabolic encephalopathy; I50.33 Acute on chronic diastolic (congestive) heart failure; J96.22 Acute and chronic respiratory failure with hypercapnia; I42.9 Cardiomyopathy, unspecified; Z51.5 Encounter for palliative care; I48.91 Unspecified atrial fibrillation; Z66 Do not resuscitate; G47.33 Obstructive sleep apnea (adult) (pediatric); I27.29 Other secondary pulmonary hypertension; I50.812 Chronic right heart failure; N18.30 Chronic kidney disease, stage 3 unspecified; Z95.810 Presence of automatic (implantable) cardiac defibrillator; Z99.81 Dependence on supplemental oxygen; Z79.82 Long term (current) use of aspirin; Z79.899 Other long term (current) drug therapy
CPT/HCPCS: 36415; 70450; 71045; 72125; 80048; 80076; 82550; 82803; 83690; 83735; 83880; 84484; 85025; 85027; 85610; 85730; 87493; 87507; 92950; 93005; 94660; 97162; 99285; J1120; J1630; J1650; J1940; J2060; J2270

== ENCOUNTER → 2023-11-26 11:30 | Outpatient (BNV) | payer MEDICARE, OTHER, SELFPAY | PROVIDERS: Admitting Provider Internal Medicine; Emergency Provider Student in an Organized Health Care Education/Training Program; PCP Family Medicine; Visit Provider Internal Medicine Cardiovascular Disease | DX: R94.31 Abnormal electrocardiogram [ECG] [EKG] (principal) | CPT/HCPCS: 93010 ==

== ENCOUNTER → 2023-11-26 17:19 | Outpatient (BNV) | payer MEDICARE, OTHER, SELFPAY | PROVIDERS: Admitting Provider Internal Medicine; Emergency Provider Student in an Organized Health Care Education/Training Program; PCP Family Medicine; Visit Provider Internal Medicine Critical Care Medicine | DX: I50.9 Heart failure, unspecified (principal); J96.22 Acute and chronic respiratory failure with hypercapnia | CPT/HCPCS: 99291 ==

== ENCOUNTER → 2023-11-26 17:19 | Outpatient (BNV) | payer MEDICARE, OTHER, SELFPAY | PROVIDERS: Admitting Provider Internal Medicine; Emergency Provider Student in an Organized Health Care Education/Training Program; PCP Family Medicine; Visit Provider Internal Medicine | DX: I50.33 Acute on chronic diastolic (congestive) heart failure (principal); I50.813 Acute on chronic right heart failure; J96.21 Acute and chronic respiratory failure with hypoxia; J96.22 Acute and chronic respiratory failure with hypercapnia | CPT/HCPCS: 99223; 99233; 99239 ==